=== PATIENT | female | born 1995 | race Hispanic/Latino ===

== ENCOUNTER 2016-08-26 18:50 | Emergency (ER) | payer OTHER ==
[~2016-08-26] VITALS: Ht 165.1 cm; Wt 147.7 kg
[~2016-08-26 18:50] MED LIST: FLUC150T48 PO; ONDA4TAB9 PO; PHEN-684 PO; SULF1TAB7 PO
[2016-08-26 19:03] VITALS: BP 130/66; PULSE 79; RESP 20; O2SAT 98
[2016-08-26 20:24] VITALS: BP 145/101; PULSE 84; RESP 18; O2SAT 97
--- NOTE | 2016-08-26 21:04 | ED.REPORT ---
HPI- Female Date of Service Aug 26, 2016 ED Provider: Jamie Carbajal MD The patient is a 20 year old female who presents to the ED complaining of vaginal itching and discharge since yesterday. She was seen at her PCP two days ago and diagnosed with a UTI. She is taking Cefdinir, Cyclobenzaprine, and Ondansetron. She denies any vaginal bleeding, fever, or any other symptoms at this time. She has 5 days of her antibiotic course remaining. Nursing Notes Stated Complaint: VAGINAL ITCHING AND PAIN Chief Complaint: Female Abdominal Pain Nursing Notes Reviewed: Yes Allergies: Coded Allergies: No Known Allergies (Verified Allergy, Unknown, 05/01/16) Scheduled Fluconazole (Diflucan) 150 Mg Tablet 150 MG PO ONCE Fluconazole (Diflucan) 150 Mg Tablet 150 MG PO ONCE Sulfamethoxazole/Trimeth 800-160 mg (Bactrim DS) 1 Each Tablet 1 TABLET PO BID Scheduled PRN Ondansetron ODT (Zofran ODT) 4 Mg Tablet 4 MG PO Q4H PRN PRN For Nausea Phenazopyridine (Pyridium) 200 Mg Tablet 200 MG PO TID PRN PRN urinary pain General Time Seen by MD: 21:03 Chief Complaint Vaginal discharge..., Other (Vaginal itching) Hx Obtained From: Patient, Other family... (Mother) Arrived By: Walk-in Sudden in Onset?: No Onset Occurred: Yesterday Symptom Duration: Since onset Quality: Itching, Painful Severity: Current: Mild Severity: Maximum: Mild Recent Healthcare: No recent hospitalization, Recent doctor visit, Recent testing, Prior workup Similar Sx Previous: No Past Medical History Past Medical History Denies Past Surgical History Denies Family History Noncontributory Smoking History Never Smoker Social History Alcohol Use: "Social" Drug Use: Denies drug use Other Social History: Good social support, Local resident Ambulatory Status Independent Review of Systems Review of Systems Note: Vaginal itching Constitutional: Denies: Fever GI: Denies: Nausea, Vomiting Female: Reports: Dysuria (secondary to UTI), Vaginal discharge, Denies: Vaginal bleeding - abnl Complete sys rev & neg: except as marked. Physical Exam Initial Vital Signs Vital Signs (First) Date Time Temp Pulse Resp B/P Pulse Ox O2 Delivery O2 Flow Rate FiO2 08/26/16 19:03 37.1 79 20 130/66 98 Room Air Initial VS: Reviewed, Vital signs normal General/Constitutional: Well-developed, Well-nourished Head / Eyes: Atraumatic, Normocephalic, PERRL ENT: Mucous membranes moist, Conjunctiva normal, No scleral icterus Neck: Supple, Non-tender, Full range of motion Respiratory: Breath sounds normal, Clear to auscultation, No respiratory distress Cardiovascular: Regular rate & rhythm, Heart sounds normal, Intact distal pulses Abdomen / GI: Soft, Non-tender, No guarding, No rebound, No distention Back: No CVA tenderness Extremities: Vascular intact, Neuro intact, No swelling, No tenderness Skin: Warm, Dry, No cyanosis Neurologic: Alert, Oriented, Nonfocal Psychiatric: Mood/affect normal, Behavior normal, Normal thought content Female Genitourinary: Exam deferred Re-Eval/Medical Decision Med Decision/Clinical Course 20-year-old female with empiric antibiotic-associated Dannielle vaginitis. Source of Hx: Old records Re-Evaluation/Progress : Time of Eval: 21:03 Re-Evaluation/Progress Note: Met with patient. Discussed diagnosis and plan for discharge. Follow-up instructions and RTER warnings given. The patient understands and agrees to the plan. All questions addressed. Counseled Regarding: Diagnosis, Need for follow-up, When/why to return to ED Discharge & Departure Impression: Primary Impression: Yeast infection of the vagina Disposition: Home Discharge Condition All VS Reviewed: Yes Condition: Stable Patient Instructions: Vulvovaginal Candidiasis (ED) Additional Instructions: It appears that you have a vaginal yeast infection because of the antibiotic. Nystatin topical cream will help to relieve your symptoms. Diflucan ( fluconazole) 150 mg now, repeat in one week. Finish the antibiotics. Referrals: NOPCP (PCP) Scribe Attestation Portions of this note were transcribed by Win Abel. I, Dr. Carbajal, personally performed the history, physical exam and medical decision-making; I reviewed and confirmed the accuracy of the information in the transcribed note. Signed by: Debora River, 08/26/16 21:37. Jamie Carbajal MD Aug 26, 2016 21:04 WIN ABEL Aug 26, 2016 21:17
[2016-08-26] MEDS ORDERED: FLUC150T48 PO (21:24)
== END 2016-08-26 21:45 | disposition home or self-care (01) ==
LOC: SED 18:50
DX: B37.3 Candidiasis of vulva and vagina (principal)

== ENCOUNTER 2016-12-06 13:29 | Emergency (ER) | payer OTHER ==
[~2016-12-06] VITALS: Ht 165.1 cm; Wt 147.7 kg
[2016-12-06 13:33] VITALS: BP 147/103; PULSE 113; RESP 18; O2SAT 98
--- NOTE | 2016-12-06 15:32 | ED.REPORT ---
HPI-General Illness Date of Service Dec 06, 2016 ED Provider: Rex Berkowitz MD Patient is 20 year old female who presents to the ED complaining of vomiting, diarrhea, and abdominal pain onset 3 days ago. Patient states that she has been experiencing multiple episodes of watery diarrhea daily. She reports associated intermittent abdominal cramping. The patient only vomited 1x today but reports ongoing nausea. Her vomit is non-bilious. She denies fever, chills, dysuria, urinary urgency, hematemesis, hematochezia, bloody/tarry stools, chest pain, or shortness of breath. Patient denies any previous abdominal surgeries, recent antibiotic use, or recent travel. Her LNMP was 2 weeks ago. Nursing Notes Stated Complaint: DIARRHEA,NAUSEA,ABD PAIN,BREATHING ISSUES Chief Complaint: Female Abdominal Pain Nursing Notes Reviewed: Yes Allergies: Coded Allergies: No Known Allergies (Verified Allergy, Unknown, 05/01/16) Scheduled Fluconazole (Diflucan) 150 Mg Tablet 150 MG PO ONCE Fluconazole (Diflucan) 150 Mg Tablet 150 MG PO ONCE Sulfamethoxazole/Trimeth 800-160 mg (Bactrim DS) 1 Each Tablet 1 TABLET PO BID Scheduled PRN Loperamide (Loperamide) 2 Mg Capsule 2 MG PO Q4H PRN PRN For Diarrhea or Loose Stool Ondansetron (Zofran) 4 Mg Tablet 4 MG PO Q4H PRN PRN For Nausea Ondansetron ODT (Zofran ODT) 4 Mg Tablet 4 MG PO Q4H PRN PRN For Nausea Phenazopyridine (Pyridium) 200 Mg Tablet 200 MG PO TID PRN PRN urinary pain General Time Seen by MD: 15:29 Chief Complaint Abdominal pain, Diarrhea, Vomiting Hx Obtained From: Patient Arrived By: Walk-in Sudden in Onset?: No Onset Occurred: 3 days ago Symptom Duration: Since onset Location: : Abdomen Quality: Painful Severity: Current: Mild Severity: Maximum: Moderate Recent Healthcare: No recent doctor visit, No recent hospitalization Past Medical History Past Medical History obese, otherwise healthy Past Surgical History Denies Family History Noncontributory Smoking History Never Smoker Social History Alcohol Use: "Social" Drug Use: Denies drug use Other Social History: Good social support, Local resident Ambulatory Status Independent Review of Systems Full Review of Systems Constitutional: Denies: Chills, Fever Respiratory: Denies: Shortness of breath Cardiovascular: Denies: Chest pain GI: Reports: Abdominal pain, Diarrhea, Nausea, Vomiting, Denies: Bloody/tarry stool, Hematemesis, Hematochezia Female: Denies: Dysuria, Urinary urgency Complete sys rev & neg: except as marked. Physical Exam Vital Signs Vital Signs Date Time Temp Pulse Resp B/P Pulse Ox O2 Delivery O2 Flow Rate FiO2 12/06/16 16:41 37.7 55 16 130/81 100 Room Air 12/06/16 16:39 37.7 55 16 130/81 100 Room Air 12/06/16 13:33 37.7 113 18 147/103 98 Room Air Initial VS: Reviewed Head / Eyes: Atraumatic, Normocephalic, PERRL Neck: Supple, Full range of motion Extremities: Vascular intact, Neuro intact, No swelling, No tenderness Skin: Warm, Dry, No cyanosis Neurologic: Alert, Oriented, Nonfocal Psychiatric: Mood/affect normal, Behavior normal, Normal thought content General/Constitutional: Awake, Alert Appearance / Presentation: Positive: Obese ENT: Airway patent Mouth: Positive: Mucous membranes dry Respiratory / Chest: Breath sounds NL, Breath sounds = bilat, No respiratory distress, No rales, No rhonchi, No wheezing Cardiovascular: Heart rate NL, Regular rhythm, Heart sounds NL, No gallop, No murmurs, No rubs Abdomen: Soft, Non-tender, No guarding, No rebound, No distention Interpretation & Diagnostics Lab Results Interpretation Result Diagram: 12/06/16 1445 12/06/16 1445 Test 12/06/16 14:45 12/06/16 15:29 White Blood Count 8.5th/mm3 (3.8-10.1) Red Blood Count 5.18mil/mm3 (3.90-5.20) Hemoglobin 13.3g/dL (12.0-15.6) Hematocrit 41.4% (35.0-46.0) Mean Corpuscular Volume 79.9fL (81-100) Mean Corpuscular Hemoglobin 25.7pg (27.0-35.0) Mean Corpuscular Hemoglobin Concent 32.1% (32.0-37.0) Red Cell Distribution Width 14.7% (12.3-15.4) Platelet Count 352bil/L (150-400) Neutrophils (%) (Auto) 74.4% (40-74) Lymphocytes (%) (Auto) 13.3% (14-46) Monocytes (%) (Auto) 10.4% (4-12) Eosinophils (%) (Auto) 1.7% (0-5) Basophils (%) (Auto) 0.1% (0-3) Hold Purple Top Tube Received (Received) Hold Blue Top Tube Received (Received) Sodium Level 136mEq/L (134-144) Potassium Level 3.6mEq/L (3.5-5.2) Chloride Level 100mEq/L (97-108) Carbon Dioxide Level 22mmol/L (18-29) Blood Urea Nitrogen 7mg/dL (6-20) Creatinine 0.72mg/dL (0.57-1.00) Estimat Glomerular Filtration Rate 146mL/min (>59) Glucose Level 93mg/dL (60-99) Calcium Level 9.4mg/dL (8.5-10.1) Magnesium Level 1.9mg/dL (1.6-2.6) Total Bilirubin 0.2mg/dL (0.0-1.2) Aspartate Amino Transf (AST/SGOT) 41U/L (0-50) Alanine Aminotransferase (ALT/SGPT) 43U/L (0-32) Alkaline Phosphatase 64U/L (25-150) Total Protein 8.3g/dL (6.4-8.4) Albumin 4.0g/dL (3.4-5.0) Lipase 20U/L (13-60) Hold Red Top Tube Received (Received) Hold [place] Top Tube Received (Received) Hold [place]ales Top Tube Received (Received) Hold Urine Received (Received) Re-Eval/Medical Decision Med Decision/Clinical Course Patient is 20 year old female who presents to the ED complaining of vomiting, diarrhea, and abdominal pain onset 3 days ago. Patient states that she has been experiencing multiple episodes of watery diarrhea daily. She reports associated intermittent abdominal cramping. The patient only vomited 1x today but reports ongoing nausea. Her vomit is non-bilious. She denies fever, chills, dysuria, urinary urgency, hematemesis, hematochezia, bloody/tarry stools, chest pain, or shortness of breath. Patient denies any previous abdominal surgeries, recent antibiotic use, or recent travel. Her LNMP was 2 weeks ago. Here in the emergency department the patient is afebrile, hemodynamically stable and in no apparent distress. She is treated with 1 L of normal saline and Zofran for nausea. She reported significant subjective improvement. Serial abdominal examinations were completely benign. was negative. Urinalysis revealed no findings suggestive of UTI. CBC and CMP were unremarkable. Serial abdominal examinations remained benign. Dentition not suggestive of acute surgical intra-abdominal process such as appendicitis or cholecystitis. No evidence of bowel obstruction. After receiving IV fluids and antiemetics patient tolerated PO without any recurrent vomiting. No hematemesis, fever or bloody diarrhea/travel suggestive of bacterial origin of diarrhea. I do not feel that antibiotics are warranted. She has not taken any recent antibiotics and my suspicion that this is related to C. difficile is very low. Patient was prescribed Zofran and loperamide for symptom control. She will follow up closely with her regular doctor. Prior to discharge follow- up and return precautions were reviewed in detail with the patient who verbalized understanding and agreement with the plan. The patient was discharged in stable condition. Source of Hx: Old records Time of Eval: 16:15 Patient Status: Condition improved Re-Evaluation/Progress Note: Rechecked the patient. Labs were unremarkable. Her symptoms are likely due to gastroenteritis. Patient understands and agrees with the plan to be discharged home. Discharge instructions and follow-up discussed. All questions were addressed. Return to the ED warnings given. Counseled Regarding: Diagnosis, Lab results, Need for follow-up, When/why to return to ED Discharge & Departure Primary Impression: Gastroenteritis Additional Impressions: Dehydration Nausea and vomiting Vomiting type: unspecified Vomiting Intractability: unspecified Qualified Code: R11.2 - Nausea with vomiting, unspecified Morbid obesity Obesity type: unspecified obesity type Qualified Code: E66.01 - Morbid ( severe) obesity due to excess calories Disposition: Home Discharge Condition All VS Reviewed: Yes Condition: Stable Patient Instructions: Gastroenteritis (ED) Additional Instructions: Thank you for seeking care at the emergency room. It is difficult for us to make definitive diagnoses in the ED but we believe that you are experiencing enteritis. Our primary goal today in the ED was to evaluate you for any like- threatening conditions. Your evaluation was reassuring. You will be discharged with a prescription for Zofran for nausea and Loperamide for diarrhea. You should follow-up with your primary doctor in the next week. You should return to the ED immediately if you develop worsening symptoms, fevers, persistent/ bloody vomiting, bloody diarrhea, cough, shortness of breath, chest pain, lightheadedness, weakness, or any other concerning signs or symptoms. Thank you for letting us partake in your care today. Referrals: [facility] Scribe Attestation Portions of this note were transcribed by Lizz Singh. I, Dr. Berkowitz personally performed the history, physical exam and medical decision-making; I reviewed and confirmed the accuracy of the information in the transcribed note. Signed by: Debora Baumann, 12/07/2016 0100 Rex Berkowitz MD Dec 06, 2016 15:32 Lizz Singh Dec 06, 2016 23:56
[2016-12-06 15:41] LABS: BASOPHILS % (AUTO) 0.1 % (0-3); EOSINOPHILS % (AUTO) 1.7 % (0-5); MONOCYTES % (AUTO) 10.4 % (4-12); Mean Corpuscular Hemoglobin 25.7 pg (27.0-35.0); Mean Corpuscular Volume 79.9 fL (81-100); NEUTROPHILS % (AUTO) 74.4 % (40-74); Platelet Count 352 bil/L (150-400)
[2016-12-06 15:52] LABS: Magnesium 1.9 mg/dL (1.6-2.6)
[2016-12-06] MEDS ORDERED: ONDA4TAB6 PO (16:17)
[2016-12-06] MEDS ORDERED: LOPE2CAP PO (16:17)
[2016-12-06 16:39] VITALS: BP 130/81; PULSE 55; RESP 16; O2SAT 100
[2016-12-06 16:41] VITALS: BP 130/81; PULSE 55; RESP 16; O2SAT 100
== END 2016-12-06 16:36 | disposition home or self-care (01) ==
LOC: SED 13:29
DX: K52.9 Noninfective gastroenteritis and colitis, unspecified (principal); E86.0 Dehydration; E66.01 Morbid (severe) obesity due to excess calories; Z79.899 Other long term (current) drug therapy

== ENCOUNTER 2017-04-23 19:51 | Emergency (ER) | payer OTHER ==
[~2017-04-23] VITALS: Ht 165.1 cm; Wt 147.7 kg
[~2017-04-23 19:51] MED LIST changes: +LOPE2CAP PO; +ONDA4TAB6 PO
[2017-04-23 20:04] VITALS: BP 119/80; PULSE 86; RESP 22; O2SAT 99
--- NOTE | 2017-04-23 21:03 | ED.REPORT ---
HPI-Extremity Problem Lower Date of Service Apr 23, 2017 ED Provider: Jus Conn MD Pt is a healthy 21 year old female presenting to the ED complaining of right ankle pain and swelling onset yesterday when she fell down 2 stairs. Denies fever, chills, nausea, vomiting, SOB or wheezing. She denies any other injury. Nursing Notes Stated Complaint: RIGHT ANKLE SWELLING Chief Complaint: Extremity Trauma Nursing Notes Reviewed: Yes Allergies: Coded Allergies: No Known Allergies (Verified Allergy, Unknown, 05/01/16) Scheduled Fluconazole (Diflucan) 150 Mg Tablet 150 MG PO ONCE Fluconazole (Diflucan) 150 Mg Tablet 150 MG PO ONCE Sulfamethoxazole/Trimeth 800-160 mg (Bactrim DS) 1 Each Tablet 1 TABLET PO BID Scheduled PRN Ibuprofen (Ibuprofen) 400 Mg Tablet 400 MG PO QID PRN PRN For Pain Loperamide (Loperamide) 2 Mg Capsule 2 MG PO Q4H PRN PRN For Diarrhea or Loose Stool Ondansetron (Zofran) 4 Mg Tablet 4 MG PO Q4H PRN PRN For Nausea Ondansetron ODT (Zofran ODT) 4 Mg Tablet 4 MG PO Q4H PRN PRN For Nausea Phenazopyridine (Pyridium) 200 Mg Tablet 200 MG PO TID PRN PRN urinary pain General Time Seen by MD: 21:02 Chief Complaint Ankle injury right Hx Obtained From: Patient Arrived By: Wheelchair Onset Occurred: Yesterday Symptom Duration: Since onset Caused by: Accidental Location: : Ankle right Quality: Painful Severity: Current: Moderate Severity: Maximum: Moderate Recent Healthcare: No recent doctor visit, No recent hospitalization Similar Sx Previous: No Past Medical History Past Medical History obese, otherwise healthy Past Surgical History Denies Family History Noncontributory Smoking History Never Smoker Social History Alcohol Use: "Social" Drug Use: Denies drug use Other Social History: Good social support, Local resident Ambulatory Status Independent Review of Systems Constitutional: Denies: Chills, Fever Musculoskeletal: Reports: Extremity pain, Extremity swelling, Joint pain, Joint swelling Complete sys rev & neg: except as marked. Respiratory: Denies: Shortness of breath, Wheezing GI: Denies: Nausea, Vomiting Physical Exam Initial Vital Signs Vital Signs (First) Date Time Temp Pulse Resp B/P Pulse Ox O2 Delivery O2 Flow Rate FiO2 04/23/17 20:04 37.3 86 22 119/80 99 Room Air Initial VS: Reviewed General/Constitutional: Well-developed, Well-nourished Head / Eyes: Atraumatic, Normocephalic, PERRL ENT: Mucous membranes moist, Conjunctiva normal, No scleral icterus Neck: Full range of motion Respiratory: No respiratory distress Abdomen / GI: No distention Skin: Warm, Dry, No cyanosis Neurologic: Alert, Oriented, Nonfocal Psychiatric: Mood/affect normal, Behavior normal, Normal thought content Ankle / Foot: Atraumatic, No deformity, Neurologic intact, Vascular intact Swollen, tender right lateral malleolus. Decreased sensation in the 4th and 5th toes. Interpretation & Diagnostics X-Ray Interpretation Xray Interpretation: IMPRESSION: 1. No fracture or dislocation. 2. Soft tissue swelling over the lateral malleolus and tibiotalar joint effusion. Dictated by: Osiel Anne M.D. on 04/23/2017 at 21:03 X-Ray Ordered: Ankle right Interpretation / Wet Read by: Interpret - Radiologist Re-Eval/Medical Decision Med Decision/Clinical Course 47-year-old female presents with an ankle injury that proves to be a sprain and negative by x-ray. Unable to employers Velcro ankle splint due to the size of her calf, and a fiberglass cast splint was fashioned. Distal sensation and vascularity intact afterwards. Home with a walker as she is unable to manage crutches. Consider a knee scooter. Follow-up with PCP. Re-Evaluation/Progress : Time of Eval: 21:09 Patient Status: Condition improved Re-Evaluation/Progress Note: Discussed plan for discharge. Pt understands and agrees. Counseled Regarding: Diagnosis, Lab results, Need for follow-up, When/why to return to ED Discharge & Departure Impression: Primary Impression: Ankle sprain Encounter type: initial encounter Involved ligament of ankle: tibiofibular ligament Laterality: right Qualified Code: S93.431A - Sprain of tibiofibular ligament of right ankle, initial encounter Additional Impression: Morbid obesity Disposition: Home Discharge Condition All VS Reviewed: Yes Condition: Improved Patient Instructions: Ankle Sprain (ED) Additional Instructions: Yoel air cast and shoe whenever up. Remove the splint and wrap to sleep. Use walker for nonweightbearing status until you can bear weight with this splint without pain. Continue use the splint for another week or so, until you can bear weight without any pain. You can obtain a knee scooter at a medical supply store. Ibuprofen and Tylenol four times daily for pain. Follow-up with your doctor in the office. Follow-up with orthopedics if you need. Referrals: NOPCP (PCP) Xavier Lopez MD Attestation Portions of this note were transcribed by Delaney Emerson. I, Dr. Conn personally performed the history, physical exam and medical decision-making; I reviewed and confirmed the accuracy of the information in the transcribed note. Signed by: Debora Campuzano, 04/23/2017. copies to: Xavier Lopez MD, Christopher W MD Apr 23, 2017 21:03 DELANEY EMERSON Apr 23, 2017 21:10
--- NOTE | 2017-04-23 21:07 | DRSVH ---
PROCEDURE: X-RAY RIGHT ANKLE, MINIMUM THREE VIEWS ([id number]) INDICATIONS: PAIN,SWELLING TECHNIQUE: 3 views of the ankle were acquired. COMPARISON: None. FINDINGS: Bones: No fractures or dislocations. Ankle mortise alignment appears preserved. No suspicious bony lesions. Soft tissues: There is a small tibiotalar joint effusion. Soft tissue swelling is demonstrated over the lateral malleolus. Achilles tendon appears normal. IMPRESSION: 1. No fracture or dislocation. 2. Soft tissue swelling over the lateral malleolus and tibiotalar joint effusion. Dictated by: Osiel Anne M.D. on 04/23/2017 at 21:03 Approved by: Osiel Anne M.D. on 04/23/2017 at 21:05
[2017-04-23] MEDS ORDERED: IBUP400T22 PO (21:13)
[2017-04-23 23:12] VITALS: BP 118/64; PULSE 84; RESP 22; O2SAT 99
== END 2017-04-23 22:08 | disposition home or self-care (01) ==
LOC: SED 19:51
DX: S93.431A Sprain of tibiofibular ligament of right ankle, initial encounter (principal); W10.9XXA Fall (on) (from) unspecified stairs and steps, initial encounter; Y93.89 Activity, other specified; Y99.8 Other external cause status; Y92.008 Other place in unspecified non-institutional (private) residence as the place of occurrence of the external cause; E66.01 Morbid (severe) obesity due to excess calories; Z68.43 Body mass index [BMI] 50.0-59.9, adult
CPT/HCPCS: 29515; 73610; 96372; 99284; J1885